=== PATIENT | male | born 1950 | race Two or more races ===

== ENCOUNTER 2016-07-30 07:49 | Day surgery (SDC) | payer BC ==
[2016-06-30 17:15] VITALS: BMI 29.0
--- NOTE | 2016-07-30 09:37 | HP ---
History & Physical Update - History History: No Change - Physical Physical: No Change - Assessment Assessment: No Change - Plan Plan: No Change
[2016-07-30] MEDS ORDERED: MIDAZOLAM HCL 2 MG/2 ML SINGLE DOSE VIAL ONE (09:52)
[2016-07-30] MEDS ORDERED: PROPOFOL 20 ML ONE (09:57)
[2016-07-30] MEDS ORDERED: SUCCINYLCHOLINE CHLORIDE 200 MG/10 ML VIAL ONE (09:58)
[2016-07-30] MEDS ORDERED: BUPIVACAINE HCL/PF 0.5% (5MG/ML) 10 ML VIAL ONE (10:03)
[2016-07-30] MEDS ORDERED: LIDOCAINE 1% P/F 10 MG/ML VIAL INF ONE (10:07)
--- NOTE | 2016-07-30 10:53 | OP ---
Operative Note - Note: Operative Date: 07/30/16 Pre-Operative Diagnosis: Soft tissue tumor left arm. Operation: 4 cm. soft tissue tumor left arm, deep to deep fascia, with layered closure. Findings: Well encapsulated soft tissue tumor , deep to deep fascia in volar aspect of left arm. Post-Operative Diagnosis: Same as Pre-op Surgeon: Trisha Ramirez Anesthesia: MAC Specimens Removed: Soft tissue tumor left arm. Estimated Blood Loss (mls): 5 Operative Report Dictated: Yes
--- NOTE | 2016-07-30 11:29 | OP ---
DATE OF OPERATION: 07/30/2016 PREOPERATIVE DIAGNOSIS: Painful 4-cm soft tissue tumor in the ventral aspect in the mid left arm. POSTOPERATIVE DIAGNOSIS: 4-cm soft tissue tumor in the left arm deep to the deep fascia. OPERATIVE PROCEDURE: Excision of 4-cm soft tissue tumor deep to the deep fascia in the left arm with layered closure. SURGEON: Freda Saxena MD ANESTHESIA: Local with monitored IV sedation. OPERATIVE DESCRIPTION: This 66-year-old man with a mass in the left arm was brought in for excision and diagnosis. Consent was obtained. Risks, benefits, and complications were discussed with the patient, and the site was identified and marked. He was then brought to the operating room. He was given general sedation. The site was marked. Time-out was called. Lidocaine 1% with epinephrine was injected around the lesion. A 4-cm longitudinal incision was made overlying the lesion. It was deepened through the skin and subcutaneous fat and the deep fascia. It was a well-circumscribed mass deep to the deep fascia, which was completely excised with the running fat. It was dissected down to the muscle. The specimen was sent to Pathology. Hemostasis was then achieved using electrocautery. The deep fascia was approximated with buried interrupted 3-0 Vicryl sutures, the subcutaneous fat was approximated by buried interrupted 3-0 Vicryl sutures, and the skin approximated with continuous 4-0 Monocryl sutures in a running subcuticular fashion. Sponge count and instrument count were correct. Dermabond was applied to close the skin edges. Patient tolerated the procedure well and was sent from the operative suite in satisfactory stable condition. Alvaro [id number] MTDD
[2016-07-30 11:34] VITALS: TEMP 97.3
[2016-07-30] MEDS ORDERED: oxyCODONE HCL 5 MG TABLET PO PRN (11:38)
[2016-07-30] MEDS ORDERED: ONDANSETRON 4 MG/2 ML VIAL IVPUSH PRN (11:38)
[2016-07-30 11:39] VITALS: PULSE 68
[2016-07-30] MEDS ORDERED: LACTATED RINGERS SOLUTION 1,000 ML IV SCH (11:45)
[2016-07-30 15:22] VITALS: BP 130/70
--- NOTE | 2016-08-02 13:39 | PATH ---
Surgical Pathology Report Patient Name: ISH [facility]OLGUIN [facility]. Rec. #: [id number] /Age/Gender: 1950 (Age: 66) / M Account: [id number] Location: [facility] Taken: 07/30/2016 Received: 07/30/2016 Reported: 08/02/2016 Physicians: Sudha Ramirez M.D. Specimen(s) Received SOFT TISSUE TUMOR LEFT ARM Clinical History Left arm mass Final Diagnosis SOFT TISSUE, LEFT ARM, EXCISION: ANGIOLIPOMA. Electronically Signed Jared Burrows M.D. Gross Description Received in formalin labeled "soft tissue tumor left arm," are 2 irregular portions of yellow, lobulated adipose tissue measuring 1.6 x 1.1 x 0.7 cm and 1.9 x 1.5 x 0.6 cm. Sectioning reveals unremarkable fat. The specimen is entirely submitted in 2 cassettes. /07/30/2016 saudi07/30/2016
== END 2016-07-30 13:15 | disposition home or self-care (01) ==
LOC: JASU-SURG 07:49
PROVIDERS: ATTEND Specialist
PROC: 0JBF0ZZ Excision of Left Upper Arm Subcutaneous Tissue and Fascia, Open Approach (ICD-10-PCS; principal; 2016-07-30 09:30)
DX: D17.22 Benign lipomatous neoplasm of skin and subcutaneous tissue of left arm (principal); I10 Essential (primary) hypertension; E11.9 Type 2 diabetes mellitus without complications; Z85.850 Personal history of malignant neoplasm of thyroid; E89.0 Postprocedural hypothyroidism
CPT/HCPCS: 88304-TC; 94760

== ENCOUNTER 2018-01-17 11:26 | Emergency (ER) | payer BC, OTHER ==
[2018-01-17 11:54] VITALS: BMI 26.4
--- NOTE | 2018-01-17 12:27 | PDOC ---
Attending Attestation - Resident Resident Name: Jason Garcia - ED Attending Attestation I have performed the following: I have examined & evaluated the patient, The case was reviewed & discussed with the resident, I agree w/resident's findings & plan, Exceptions are as noted - HPI HPI: 01/17/18 13:36 The patient is a 68 year old male, with a significant PMH of reflux, asthma, HTN, HLD, and NIDDM who presents to the emergency department with abdominal pain , nausea, and vomiting since 3AM this morning. Patient describes the abdominal pain as nonradiating, diffuse, sharp, burning in nature, constant, and worse before vomiting. The abdominal pain is associated with nausea and nonbloody nonbilious vomit. Patient cannot recall how many times he has vomited. Patient states he ate a burger yesterday evening and woke up this morning with these symptoms. His son also ate a burger but did not have similar symptoms. Patient has been unable to tolerate PO intake today prompting him to come to the ER for an evaluation. Patient denies any history of ulcers. Denies any alcohol use. No abdominal surgeries in the past. Patient denies taking motrin,ibuprofen, or aleve daily. Denies sick contact. Last BM this morning was normal, formed, not dark or bloody. The patient denies chest pain, shortness of breath, headache and dizziness. Denies fever, chills, diarrhea and constipation. Denies dysuria, frequency, urgency and hematuria. Allergies: NKA Past surgical history: None reported. Social history: No reported alcohol, drug or cigarette use. - Physicial Exam PE: 01/17/18 13:39 GENERAL: Awake, alert, and fully oriented, in no acute distress but appears uncomfortable EYES: PERRLA, EOMI, sclera anicteric, conjunctiva clear ENT: Oropharynx clear without exudates. Moist mucosa NECK: Normal ROM, supple, no lymphadenopathy, JVD, or masses LUNGS: Breath sounds equal, clear to auscultation bilaterally. No wheezes, and no crackles HEART: Regular rate and rhythm, normal S1 and S2, no murmurs, rubs or gallops ABDOMEN: +diffuse guarding, no focal ttp, no distention, no rebound EXTREMITIES: Normal range of motion, no edema. No cords, erythema, or tenderness NEUROLOGICAL: Normal speech, cranial nerves intact, 5/5 strength in all 4 extremities, normal sensation to light touch in all 4 extremities, normal cerebellar exam, normal gait, normal tone SKIN: Warm, Dry, normal turgor, no rashes or lesions noted. - Medical Decision Making 01/17/18 13:58 68yo M presents to the ED with diffuse abd pain and multiple episodes of NBNB emesis. Vitals remarkable for low BP in the 90s systolic. Abd exam with guarding. DDx includes gastroenteritis vs colitis vs pancreatitis vs cholecystitis vs appendicitis. Plan to obtain, labs, UA, CTAP, hydrate, and reassess. 01/17/18 17:57 Labs with mild leukocytosis to 11 with L shift Remaining labs wnl UA neg for infection CTAP with inguinal hernia with bladder through wall, no masses or tenderness in groin Abd pain resolved, no further emesis in ED Tolerating PO and hungry Rpt vitals improved with BP btwn 120s and 130s systolic on recheck Plan to DC with return precautions Pt to f/u with his PMD in the [place] within 1-2 days. I discussed the physical exam findings, ancillary test results and final diagnoses with the patient. I answered all of the patient's questions. The patient was satisfied with the care received and felt comfortable with the discharge plan and treatment plan. The patient will call their primary care physician within 24 hours to arrange follow-up and will return to the Emergency Department with any new, persistent or worsening symptoms. Heart Score/ECG Review #1 01/17/18 14:00 Twelve-lead EKG was performed and reviewed by me. Normal sinus rhythm, rate 94. Normal axis and intervals. No ST elevations or T-wave inversions.
[2018-01-17] MEDS ORDERED: SODIUM CHLORIDE 0.9% 1000 ML INFUS.BAG IV ONE (12:48)
[2018-01-17] MEDS ORDERED: ONDANSETRON 4 MG/2 ML VIAL IVPUSH ONE (12:48)
[2018-01-17] MEDS ORDERED: FAMOTIDINE 20 MG/50 ML IVPB 20 MG/50 ML MG IVPB ONE (12:48)
[2018-01-17] MEDS ORDERED: ONDANSETRON 4 MG/2 ML VIAL ONE (12:58)
--- NOTE | 2018-01-17 13:05 | PDOC ---
History of Present Illness - General Chief Complaint: Pain, Acute Stated Complaint: VOMITING Time Seen by Provider: 01/17/18 12:15 History Source: Patient Exam Limitations: No Limitations - History of Present Illness Initial Comments: 01/17/18 12:49 The patient is a 68M with a PMH of HTN, DM, HLD who presents to the ER with complaints of abdominal pain and nausea. The patient states that he developed sudden onset diffuse, sharp, worsening, and constant abdominal pain. The pain started abruptly at 0300 this morning. He states that this pain is associated with nausea and NBNB vomiting without fever, chills, CP, SOB, dysuria, hematuria , hematochezia. He denies any EtOH, smoking, and recreational drugs. He believes this pain is from a burger he ate yesterday evening. Past History - Past Medical History Allergies/Adverse Reactions: Allergies Allergy/AdvReac Type Severity Reaction Status Date / Time cefuroxime axetil Allergy Swelling Verified 07/30/16 08:20 [From Ceftin] Penicillins Allergy Verified 01/17/18 11:50 Home Medications: Ambulatory Orders Levothyroxine [Synthroid -] 150 mcg PO DAILY 06/30/16 Metformin HCl [Metformin HCl ER] 500 mg PO DAILY 06/30/16 Pravastatin Sodium 5 mg PO DAILY 06/30/16 Ramipril 5 mg PO DAILY 06/30/16 Anemia: No Asthma: No Cancer: No Cardiac Disorders: No CVA: No COPD: No CHF: No Dementia: No Diabetes: Yes GI Disorders: No Disorders: No HTN: Yes Hypercholesterolemia: Yes Liver Disease: No Seizures: No Thyroid Disease: Yes - Surgical History Abdominal Surgery: No Appendectomy: No Cardiac Surgery: No Cholecystectomy: No Lung Surgery: No Neurologic Surgery: No Orthopedic Surgery: No - Immunization History Immunization Up to Date: No - Suicide/Smoking/Psychosocial Hx Smoking History: Never smoked Have you smoked in the past 12 months: No Information on smoking cessation initiated: No Hx Alcohol Use: No Drug/Substance Use Hx: No Substance Use Type: Alcohol Hx Substance Use Treatment: No Review of Systems - Review of Systems Able to Perform ROS?: Yes Comments:: 01/17/18 13:31 GENERAL/CONSTITUTIONAL: No fever or chills. No weakness. HEAD, EYES, EARS, NOSE AND THROAT: No change in vision. No ear pain or discharge. No sore throat. CARDIOVASCULAR: No chest pain, palpitations, or lightheadedness. RESPIRATORY: No cough, wheezing, shortness of breath, or hemoptysis. GASTROINTESTINAL: Positive for abdominal pain, nausea, and vomiting. GENITOURINARY: No dysuria, frequency, hematuria, or change in urination. MUSCULOSKELETAL: No joint or muscle swelling or pain. No neck or back pain. SKIN: No rash or lesions. NEUROLOGIC: No headache, numbness, tingling, focal weakness, loss of consciousness, or change in strength/sensation. ENDOCRINE: No increased thirst. No abnormal weight change. HEMATOLOGIC/LYMPHATIC: No anemia, easy bleeding, or history of blood clots. ALLERGIC/IMMUNOLOGIC: No hives or skin allergy. Is the patient limited [place] proficient: No *Physical Exam - Vital Signs Last Vital Signs Temp Pulse Resp BP Pulse Ox 98.3 F 98 H 16 99/59 L 96 01/17/18 11:52 01/17/18 11:52 01/17/18 11:52 01/17/18 11:52 01/17/18 11:52 - Physical Exam Comments: 01/17/18 13:32 GENERAL: Well developed, well nourished. Awake and alert. No acute distress. HEENT: Normocephalic, atraumatic. Hearing grossly normal. Moist mucous membranes. No conjunctival pallor. Sclera are non-icteric. NECK: Supple. Full ROM. No JVD. CARDIOVASCULAR: Regular rate and rhythm. No murmurs, rubs, or gallops. PULMONARY: No evidence of respiratory distress. Lungs clear to auscultation bilaterally. No wheezing, rales or rhonchi. ABDOMINAL: Soft. Tenderness to deep palpationin epigastrium. Non-distended. No rebound or guarding. GENITOURINARY: No CVA tenderness bilaterally. MUSCULOSKELETAL: Normal range of motion at all joints. No bony deformities or tenderness. EXTREMITIES: No cyanosis. No clubbing. No edema. No calf tenderness or swelling. SKIN: Warm and dry. Normal capillary refill. No rashes. No jaundice. NEUROLOGICAL: Alert, awake, appropriate. Cranial nerves 2-12 grossly intact. Normal speech. Gait is normal without ataxia. PSYCHIATRIC: Cooperative. Good eye contact. Appropriate mood and affect. Moderate Sedation - Procedure Monitoring Vital Signs: Procedure Monitoring Vital Signs Temperature 98.3 F 01/17/18 11:52 Pulse Rate 98 H 01/17/18 11:52 Respiratory Rate 16 01/17/18 11:52 Blood Pressure 99/59 L 01/17/18 11:52 O2 Sat by Pulse Oximetry (%) 96 01/17/18 11:52 Heart Score/ECG Review #1 ECG reviewed & interpreted by me at: 13:33 General ECG Interpretation: Sinus Rhythm, Normal Rate, Normal Intervals, No acute ischemic changes Compared to previous ECG there are: Previous ECG unavail 01/17/18 13:34 NSR vent rate 95 DC 142 QRS 92 QTc 425 No STD or JOCELYN No signs of acute ischemia ED Treatment Course - LABORATORY CBC & Chemistry Diagram: 01/17/18 13:09 01/17/18 12:24 Medical Decision Making - Medical Decision Making 01/17/18 13:34 The patient is a 68M with a PMH of HTN, HLD, and DM who presents to the ER with diffuse abdominal pain. PE nonsignificant on my exam, however he had guarding with my attending. Concern for PUD, gastritis, AAA, mesenteric ischemia, pancreatitis. Pending labs and imaging. Giving fluids, zofran, and pepcid for symptomatic control. Pt states he feels better on reassessment. 01/17/18 17:25 CBC, CMP, troponin, lipase negative. CTAP shows inguinal hernia. Pt states his pain has improved. Giving maalox for continued "burning sensation" with resolving of these symptoms. Will d/c with PCP f/u as pt passed his PO challenge. *DC/Admit/Observation/Transfer Diagnosis at time of Disposition: Epigastric abdominal pain - Discharge Dispostion Disposition: HOME Condition at time of disposition: Stable Decision to Admit order: No - Referrals Referrals: ON STAFF,NOT [Primary Care Provider] - - Patient Instructions Printed Discharge Instructions: DI for Abdominal Pain-Adult Additional Instructions: Please follow up with your primary care physician in 1-3 days. Please return to the ER if you have any signs or symptoms of chest pain, shortness of breath, uncontrollable fever, chills, nausea, vomiting, numbness, tingling, or weakness in any part of your body, changes in vision, or slurred speech. Please return to the ER if symptoms persist, worsen, or new symptoms arise. - Post Discharge Activity
[2018-01-17 13:28] LABS: BASO % 0.1 % (0-2.0); EOS % 0.1 % (0-4.5); HEMATOCRIT 41.9 % (35.4-49); HEMOGLOBIN 14.9 GM/dL (11.7-16.9); LYMPH % 3.9 % (8-40); MCH 30.5 pg (25.7-33.7); MCHC 35.5 g/dl (32.0-35.9); MEAN PLT VOLUME 7.2 fl (7.5-11.1); MONO % 4.1 % (3.8-10.2); NEUT % 91.8 % (42.8-82.8); PLATELET COUNT 218 K/MM3 (134-434); RBC 4.87 M/mm3 (4.00-5.60); RDW 13.8 % (11.9-15.9); WHITE BLOOD COUNT 10.2 K/mm3 (4.0-10.0)
[2018-01-17 13:41] LABS: INR 1.09 (0.83-1.09); PROTHROMBIN TIME (PATIENT) 12.9 SEC (9.7-13.0)
[2018-01-17 14:13] LABS: ALBUMIN 4.2 g/dl (3.4-5.0); ALK PHOS 77 U/L (45-117); ANION GAP 7 MMOL/L (8-16); BILIRUBIN,TOTAL 1.2 mg/dL (0.2-1); BLOOD UREA NITROGEN 24 mg/dL (7-18); CALCIUM 8.8 mg/dL (8.5-10.1); CHLORIDE 99 mmol/L (98-107); CO2 31 mmol/L (21-32); GLUCOSE,RANDOM 121 mg/dL (74-106); LIPASE 150 U/L (73-393); POTASSIUM 4.1 mmol/L (3.5-5.1); SGOT/AST 20 U/L (15-37); SGPT/ALT 21 U/L (13-61); SODIUM 137 mmol/L (136-145); TOT PROT 7.8 g/dl (6.4-8.2)
[2018-01-17 14:32] LABS: URINE APPEARANCE CLEAR; URINE BILIRUBIN NEGATIVE (<2.0 mg/dL); URINE COLOR YELLOW; URINE GLUCOSE (UA) NEGATIVE (NEGATIVE); URINE KETONE TRACE (NEGATIVE); URINE LEUK ESTERASE NEGATIVE (NEGATIVE); URINE NITRITE NEGATIVE (NEGATIVE); URINE PROTEIN 1+ (NEGATIVE); URINE UROBILINOGEN NEGATIVE mg/dL (0.2-1.0)
[2018-01-17 14:42] LABS: URINE MUCUS RARE
[2018-01-17 14:44] LABS: ANISOCYTOSIS 1+; MACROCYTOSIS 0; PLATELET ESTIMATE NORMAL
--- NOTE | 2018-01-17 15:33 | EKG ---
Test Reason : Blood Pressure : / mmHG Vent. Rate : 094 BPM Atrial Rate : 094 BPM P-R Int : 142 ms QRS Dur : 092 ms QT Int : 340 ms P-R-T Axes : 070 036 073 degrees QTc Int : 425 ms POOR DATA QUALITY, INTERPRETATION MAY BE ADVERSELY AFFECTED NORMAL SINUS RHYTHM NORMAL ECG NO PREVIOUS ECGS AVAILABLE Confirmed by Rj Martínez ([id number]) on 01/17/2018 3:33:30 PM Referred By: Confirmed By:Rj Martínez
[2018-01-17] MEDS ORDERED: MAG HYDROX/AL HYDROX/SIMETH 30 ML UNIT-DOSE CUP PO ONE (16:50)
[2018-01-17] MEDS ORDERED: MAG HYDROX/AL HYDROX/SIMETH 30 ML UNIT-DOSE CUP ONE (16:59)
[2018-01-17 18:20] VITALS: BP 108/69; PULSE 97; TEMP 98.3
== END 2018-01-17 18:05 | disposition home or self-care (01) ==
LOC: JER 11:26
PROC: 3E0337Z Introduction of Electrolytic and Water Balance Substance into Peripheral Vein, Percutaneous Approach (ICD-10-PCS; principal; 2018-01-17)
PROC: 3E033GC Introduction of Other Therapeutic Substance into Peripheral Vein, Percutaneous Approach (ICD-10-PCS; 2018-01-17)
DX: R10.13 Epigastric pain (principal); I10 Essential (primary) hypertension; E11.9 Type 2 diabetes mellitus without complications; E78.5 Hyperlipidemia, unspecified
CPT/HCPCS: 36415; 74177-TC; 80053; 81003; 81015; 82550; 83605; 83690; 84484; 85025; 85610; 86850; 86900; 86901; 93005; 93010; 99283-25; J7030

== ENCOUNTER 2018-01-27 08:14 | Emergency (ER) | payer BC, OTHER ==
[2018-01-27 08:25] VITALS: TEMP 99.6; BMI 25.8
--- NOTE | 2018-01-27 08:47 | PDOC ---
History of Present Illness - General Chief Complaint: Pain Stated Complaint: PAIN Time Seen by Provider: 01/27/18 08:44 History Source: Patient Exam Limitations: No Limitations - History of Present Illness Initial Comments: 01/27/18 08:46 68 YOM with h/o BPH (with h/o urinary retention in the past, most recently about a month ago, had a surgery with his urologist Dr. Lowery at [facility] in the end of December 2017), NIDDM (on metoprolol), hypothyroidism, GERD , asthma, HTN, HLD, p/w lower abdominal pain and inability to empty his bladder for the past day. He has had dribbling but is otherwise unable to start a stream of urine. Had a Landa catheter after his prostate procedure in the end of December but otherwise does not He denies any blood in the urine or burning on urination. He denies any new headache, dizziness, vision change, n/t/w focally, f/c/n/v/d/c, black/bloody stool, bowel incontinence, balance issues, or other problems. Past History - Past Medical History Allergies/Adverse Reactions: Allergies Allergy/AdvReac Type Severity Reaction Status Date / Time cefuroxime axetil Allergy Swelling Verified 01/27/18 08:25 [From Ceftin] Penicillins Allergy Verified 01/27/18 08:25 Home Medications: Ambulatory Orders Levothyroxine [Synthroid -] 150 mcg PO DAILY 06/30/16 Metformin HCl [Metformin HCl ER] 500 mg PO DAILY 06/30/16 Ondansetron [Zofran Odt -] 4 mg SL BID PRN #6 od.tablet 01/17/18 Alfuzosin HCl [Alfuzosin HCl ER] 10 mg PO DAILY 01/27/18 Fluticasone/Vilanterol [Breo Ellipta 100-25 Mcg INH] 1 puff IN HS 01/27/18 Losartan Potassium 25 mg PO DAILY 01/27/18 Metoprolol Succinate [Toprol Xl] 50 mg PO DAILY 01/27/18 Sulfamethoxazole/Trimethoprim [Bactrim Ds -] 1 tab PO BID #14 tablet 01/27/18 Anemia: No Asthma: No Cancer: No Cardiac Disorders: No CVA: No COPD: No CHF: No Dementia: No Diabetes: Yes GI Disorders: No Disorders: No HTN: Yes Hypercholesterolemia: Yes Liver Disease: No Seizures: No Thyroid Disease: Yes - Surgical History Abdominal Surgery: No Appendectomy: No Cardiac Surgery: No Cholecystectomy: No Lung Surgery: No Neurologic Surgery: No Orthopedic Surgery: No - Immunization History Immunization Up to Date: No - Suicide/Smoking/Psychosocial Hx Smoking History: Never smoked Have you smoked in the past 12 months: No Hx Alcohol Use: No Drug/Substance Use Hx: No Substance Use Type: Alcohol Hx Substance Use Treatment: No Review of Systems - Review of Systems Able to Perform ROS?: Yes Comments:: 01/27/18 09:19 GEN: no fever, chills, malaise, generalized weakness, or weight change HEENT: no ear pain, sore throat, vision change, or eye pain CV: no chest pain, palpitations, lightheadedness, syncope, or edema RESP: no cough, wheezing, or SOB GI: low abdominal pressure, no nausea, vomiting, diarrhea, constipation, or white/black/bloody stool : retention, no dysuria, hematuria, incontinence, bleeding, or discharge MSK: no neck/back pain, muscle weakness/pain, or joint swelling/pain NEURO: no headache, seizure, vertigo, numbness, tingling, or focal weakness PSYCH: no substance use, no behavior change SKIN: no jaundice, no rash ROS otherwise negative except as noted in HPI *Physical Exam - Vital Signs Last Vital Signs Temp Pulse Resp BP Pulse Ox 99.6 F 102 H 20 127/82 98 01/27/18 08:21 01/27/18 08:21 01/27/18 08:21 01/27/18 08:21 01/27/18 08:21 01/27/18 09:20 GENERAL: well-appearing, A/Ox4, no distress, answers questions appropriately, accompanied by significant other at bedside HEENT: PERRLA, EOMI, moist mucous membranes NECK/BACK: no midline ttp, no spinal stepoff or deformity, no hematoma, full ROM , neck supple CARDIOVASCULAR: regular rate/rhythm, normal S1S2, no MGR, strong peripheral pulses, capillary refill <2 seconds, extremities wwp, no edema LUNGS/RESPIRATORY: no respiratory distress, CTAB GI/ABDOMEN: protuberant but not tight, symmetric [id number], normoactive BS, soft, minimal suprapubic ttp, otherwise no ttp, no midline pulsatile masses : no CVA tenderness EXTREMITIES: no muscle atrophy, no acute deformity, no edema SKIN: warm and dry, no pallor, no jaundice, no rash, no bruising, no skin breakdown, no cuts, no lesions NEUROLOGICAL: GCS 15, CN II-XII grossly intact, 5/5 strength proximally and distally, no facial droop Moderate Sedation - Procedure Monitoring Vital Signs: Procedure Monitoring Vital Signs Temperature 99.6 F 01/27/18 08:21 Pulse Rate 102 H 01/27/18 08:21 Respiratory Rate 20 01/27/18 08:21 Blood Pressure 127/82 01/27/18 08:21 O2 Sat by Pulse Oximetry (%) 98 01/27/18 08:21 Procedures - Bedside Ultrasound Remarks: Study: bladder, kidneys Indication: urinary retention Findings: bladder with 224cc urine, no e/o cystitis, kidneys without hydronephrosis Conclusion: 224cc in bladder, otherwise normal exam ED Treatment Course - LABORATORY CBC & Chemistry Diagram: 01/27/18 09:37 01/27/18 09:37 Medical Decision Making - Medical Decision Making Adult Pt p/w urinary retention. Initial Vital Signs Temp Pulse Resp BP Pulse Ox 99.6 F 102 H 20 127/82 98 01/27/18 08:21 01/27/18 08:21 01/27/18 08:21 01/27/18 08:21 01/27/18 08:21 Exam: As noted in Physical Exam section. Overwhelming likelihood this is BPH causing ureteral obstruction. Much less likely any of the following: space occupying lesion (e.g. large fibroid, , malignancy), interstitial cystitis, neurogenic bladder, CHRONOMETER TESTER or or PNS dysfunction (no other new neuro sxs). W/U ordered: CBCD CMP UA UCx TX ordered: Landa 01/27/18 09:24 I have spoken with the patient's urologist, Dr. Lowery. He is on board with plan to check labs, place Landa versus offer option of self cath at home. I have made an appointment for the patient: 8:[address] Lay (Dr. Lowery' partner). 01/27/18 09:51 Patient notes mild headache same as prior headaches, asks for Tylenol, ordered. Laboratory Tests 01/27/18 01/27/18 01/27/18 09:37 09:37 09:37 WBC 11.5 H RBC 4.74 Hgb 13.3 Hct 41.4 MCV 87.4 MCH 28.1 MCHC 32.1 RDW 13.8 Plt Count 177 MPV 6.6 L Absolute Neuts (auto) 9.3 H Neutrophils % 80.7 Lymphocytes % 6.8 L D Monocytes % 11.9 H D Eosinophils % 0.2 D Basophils % 0.4 D Nucleated RBC % 0 Sodium 136 Potassium 4.3 Chloride 102 Carbon Dioxide 27 Anion Gap 7 L BUN 13 Creatinine 1.0 Creat Clearance w eGFR > 60 Random Glucose 115 H Calcium 8.5 Total Bilirubin 2.3 H AST 16 ALT 18 Alkaline Phosphatase 58 Total Protein 7.1 Albumin 4.0 Urine Color Yellow Urine Appearance Cloudy Urine pH 8.0 Ur Specific [place] 1.013 Urine Protein 1+ H Urine Glucose (UA) Negative Urine Ketones 1+ H Urine Blood Negative Urine Nitrite Positive Urine Bilirubin Negative Urine Urobilinogen Negative Ur Leukocyte Esterase 3+ H Urine WBC (Auto) 198 Urine RBC (Auto) 12 Ur Epithelial Cells Rare Urine Bacteria Rare Patient has positive UA. The possibility of prostatitis is considered especially because the patient had procedure 3 weeks ago. However he has no systemic symptoms. Will treat with Bactrim to cover for both UTI and prostatitis, place Landa. Reassessment: patient feels well, comfortable going home. DISCHARGE The Pt is appropriate for discharge with close outpatient follow up. Workup is not concerning for emergency-level pathology at this time. The Pt is comfortable with this plan and will follow up with her urology team on Tuesday. Specific return precautions are discussed and she will come back to the ER if necessary. *DC/Admit/Observation/Transfer Diagnosis at time of Disposition: Urinary retention due to benign prostatic hyperplasia - Discharge Dispostion Disposition: HOME Condition at time of disposition: Stable Decision to Admit order: No - Prescriptions Prescriptions: Sulfamethoxazole/Trimethoprim [Bactrim Ds -] 1 tab PO BID #14 tablet - Referrals - Patient Instructions Printed Discharge Instructions: How to Care for Your Landa Catheter -- Male Additional Instructions: You were seen in the ER for inability to urinate. We did an exam and laboratory work, and placed a Landa catheter. You have a bladder infection and we are giving you a course of antibiotics to take (pick it up from your pharmacy and take the whole course as prescribed on the label). After our assessment, we do not believe you are having a medical emergency at this time, and we believe you are safe to go home. Please follow up with your urologist team on Tuesday, 8:45 pm, with Dr. Dick (who is the work partner of Dr. Lowery). Call their clinic this afternoon if you need to change the appointment time. Read through the packet of information in this handout about how to care for your Landa catheter at home. If you have any new or worsening symptoms, please come back to the ER at any time (24 hours a day). If you are having severe or life threatening symptoms, or symptoms that make it unsafe to drive or have someone drive you, please call 911. - Post Discharge Activity Forms/Work/School Notes: Back to Work
--- NOTE | 2018-01-27 09:23 | PDOC ---
Attending Attestation - Resident Resident Name: SuhailSabiha - ED Attending Attestation I have performed the following: I have examined & evaluated the patient, The case was reviewed & discussed with the resident, I agree w/resident's findings & plan, Exceptions are as noted - HPI HPI: 01/27/18 10:16 Mr Waters is a 68 yo M with h/o BPH (with h/o urinary retention in the past,s/p prostate procedure in December 2017), NIDDM, HTN, HLD, GERD He reports difficulty urinating, incomplete bladder emptying (+) dribbling No fevers, chills, hematuria, dysuria - Physicial Exam PE: 01/27/18 10:19 GENERAL: well-appearing, A/Ox4, no distress, answers questions appropriately, accompanied by significant other at bedside CARDIOVASCULAR: regular rate/rhythm, normal S1S2, no MGR LUNGS/RESPIRATORY: no respiratory distress, CTAB GI/ABDOMEN: protuberant, soft, minimal suprapubic ttp, otherwise no ttp, no midline pulsatile masses : no CVA tenderness SKIN: warm and dry, no pallor, no jaundice, no rash, no bruising, no skin breakdown, no cuts, no lesions - Medical Decision Making 01/27/18 09:22 68 yo M presenting with urinary retention 01/27/18 10:15 Laboratory Tests 01/27/18 01/27/18 09:37 09:37 WBC 11.5 H Hgb 13.3 Hct 41.4 Plt Count 177 Urine Ketones 1+ H Urine Blood Negative Urine Nitrite Positive Ur Leukocyte Esterase 3+ H Urine WBC (Auto) 198 Urine RBC (Auto) 12 01/27/18 10:20 Patterson cathether placed with return of approximately 250 cc urine Will discharge on bactrim Will discharge with patterson cathether Follow up with urology 01/27/18 10:43 Laboratory Tests 01/27/18 09:37 BUN 13 Creatinine 1.0 *DC/Admit/Observation/Transfer Diagnosis at time of Disposition: Urinary retention due to benign prostatic hyperplasia - Discharge Dispostion Disposition: HOME Condition at time of disposition: Stable Decision to Admit order: No - Referrals - Patient Instructions Printed Discharge Instructions: How to Care for Your Patterson Catheter -- Male Additional Instructions: You were seen in the ER for inability to urinate. We did an exam and laboratory work, and placed a Patterson catheter. After our assessment, we do not believe you are having a medical emergency at this time, and we believe you are safe to go home. Please follow up with your urologist team on Tuesday, 8:45 pm, with Dr. Dick (who is the work partner of Dr. Lowery). Call their clinic this afternoon if you need to change the appointment time. Read through the packet of information in this handout about how to care for your Patterson catheter at home. If you have any new or worsening symptoms, please come back to the ER at any time (24 hours a day). If you are having severe or life threatening symptoms , or symptoms that make it unsafe to drive or have someone drive you, please call 911. - Post Discharge Activity
[2018-01-27] MEDS ORDERED: ACETAMINOPHEN 500 MG TABLET (FP) PO ONE (09:51)
[2018-01-27 09:52] LABS: URINE APPEARANCE CLOUDY; URINE BILIRUBIN NEGATIVE (<2.0 mg/dL); URINE COLOR YELLOW; URINE GLUCOSE (UA) NEGATIVE (NEGATIVE); URINE KETONE 1+ (NEGATIVE); URINE LEUK ESTERASE 3+ (NEGATIVE); URINE NITRITE POSITIVE (NEGATIVE); URINE PROTEIN 1+ (NEGATIVE); URINE UROBILINOGEN NEGATIVE mg/dL (0.2-1.0)
[2018-01-27 09:53] LABS: BASO % 0.4 % (0-2.0); EOS % 0.2 % (0-4.5); HEMATOCRIT 41.4 % (35.4-49); HEMOGLOBIN 13.3 GM/dL (11.7-16.9); LYMPH % 6.8 % (8-40); MCH 28.1 pg (25.7-33.7); MCHC 32.1 g/dl (32.0-35.9); MEAN CELL VOLUME 87.4 fl (80-96); MEAN PLT VOLUME 6.6 fl (7.5-11.1); MONO % 11.9 % (3.8-10.2); NEUT % 80.7 % (42.8-82.8); PLATELET COUNT 177 K/MM3 (134-434); RBC 4.74 M/mm3 (4.00-5.60); RDW 13.8 % (11.9-15.9); WHITE BLOOD COUNT 11.5 K/mm3 (4.0-10.0)
[2018-01-27] MEDS ORDERED: ACETAMINOPHEN 325 MG TABLET (FP) ONE (10:01)
[2018-01-27 10:12] LABS: EPI CELLS RARE /HPF (FEW); URINE BACTERIA RARE /hpf (NONE SEEN)
[2018-01-27 10:23] LABS: ALK PHOS 58 U/L (45-117); ANION GAP 7 MMOL/L (8-16); BILIRUBIN,TOTAL 2.3 mg/dL (0.2-1); BLOOD UREA NITROGEN 13 mg/dL (7-18); CALCIUM 8.5 mg/dL (8.5-10.1); CHLORIDE 102 mmol/L (98-107); CO2 27 mmol/L (21-32); GLUCOSE,RANDOM 115 mg/dL (74-106); POTASSIUM 4.3 mmol/L (3.5-5.1); SGOT/AST 16 U/L (15-37); SGPT/ALT 18 U/L (13-61); SODIUM 136 mmol/L (136-145); TOT PROT 7.1 g/dl (6.4-8.2)
[2018-01-27] MEDS ORDERED: SULFAMETHOXAZOLE/TRIMETHOPRIM 800MG/160MG D.S. TABLET PO ONE (11:09)
[2018-01-27] MEDS ORDERED: SULFAMETHOXAZOLE/TRIMETHOPRIM 800MG/160MG D.S. TABLET ONE (11:24)
[2018-01-27 12:43] VITALS: BP 128/82; PULSE 78
== END 2018-01-27 12:44 | disposition home or self-care (01) ==
LOC: JER 08:14
PROC: 0T9B70Z Drainage of Bladder with Drainage Device, Via Natural or Artificial Opening (ICD-10-PCS; principal; 2018-01-27)
PROC: BT4JZZZ Ultrasonography of Kidneys and Bladder (ICD-10-PCS; 2018-01-27)
DX: N40.1 Benign prostatic hyperplasia with lower urinary tract symptoms (principal); R33.8 Other retention of urine; N39.0 Urinary tract infection, site not specified; B96.20 Unspecified Escherichia coli [E. coli] as the cause of diseases classified elsewhere
CPT/HCPCS: 36415; 80053; 81003; 81015; 85025; 87086; 87186; 99283-25